=== PATIENT | female | born 1975 | race Caucasian/White ===

== ENCOUNTER → 2018-11-29 12:31 | Outpatient (CLI) | payer MEDICARE, MEDICAID, SELFPAY ==
--- NOTE | 2018-11-29 | DI.MRI.S_ITS ---
PROCEDURE: MR STROKE Pre- and post-contrast brain MRI, non-contrast brain MR angiogram, pre- and postcontrast neck MR angiogram INDICATIONS: Unspecified subjective visual disturbances TECHNIQUE: Brain: Noncontrast axial T1 spin echo, axial T2 fast spin echo, sagittal and axial FLAIR, coronal T2 fast spin echo, axial gradient echo, axial diffusion and ADC through the brain. After the administration of contrast, axial 3D VIBE of the cranial vasculature and brain. Brain MRA: Non-contrast 3-D time of flight MR angiogram, with multiple tpequma-ambltmwbl-dxpazfweul (MIP) reformats performed. Neck MRA: Axial and sagittal TruFISP through the neck. Coronal dynamic MR angiogram during administration of contrast in the arterial and venous phases, with 3-dimenstional oaopdef-bnmuhsdrp-nrmdofowne (MIP) reformats constructed from subtraction images. COMPARISON: None. FINDINGS: Image quality: Degraded by patient motion artifact. BRAIN: CSF spaces: Ventricles are normal in size and shape. Basal cisterns are patent. No extra-axial fluid collections. Brain: No intracranial bleeds or mass effects. There is mild, diffuse cerebral volume loss. There are minimal periventricular and subcortical white matter chronic microvascular ischemic changes. Baltazar-white matter interface is normal. Diffusion weighted images show no acute ischemic insults. Brainstem appears normal. Normal intravascular flow voids are present. No abnormal intracranial enhancement. Skull and face: Calvarial marrow signal is normal. Orbits appear normal. Sinuses: Sinuses and mastoids are clear. BRAIN MR ANGIOGRAM: Anterior circulation: Intracranial internal carotid arteries are normal in size and enhancement. The flow within the paired anterior cerebral arteries is normal and symmetric. The flow within the middle cerebral arteries is normal and symmetric. The anterior communicating artery is seen. No stenoses, occlusions, or aneurysms. Posterior circulation: The visualized portions of the vertebral arteries demonstrate normal caliber, and join to form a normal appearing basilar artery. The flow within the posterior cerebral arteries is normal and symmetric. No stenoses, occlusions, or aneurysms. NECK MR ANGIOGRAM: Carotids: Great vessels demonstrate a bovine variant anatomy as they arise from the aortic arch. The origins of the common carotid arteries appear patent. The calibers and courses of both common carotid arteries are normal. The bifurcation regions appear normal bilaterally. The internal carotid arteries demonstrate normal course and caliber. Posterior circulation: The origins of the vertebral arteries appear patent. More superior portions of both vertebral arteries demonstrate normal course and caliber, and join to form a normal appearing basilar artery. Miscellaneous: Subclavian arteries appear patent. Pre-contrast images through the neck show no soft tissue abnormalities. IMPRESSION: BRAIN MRI: 1. No acute intracranial disease process. 2. No areas of acute or chronic infarction. 3. No abnormal intracranial mass or suspicious postcontrast enhancement. 4. Mild, diffuse cerebral volume loss. 5. Minimal periventricular and subcortical white matter chronic microvascular ischemic changes. BRAIN MR ANGIOGRAM: Negative examination. NECK MR ANGIOGRAM: Negative examination. Dictated by: Ayanna Maradiaga MD, PhD on 11/29/2018 at 12:38 Approved by: Ayanna Maradiaga MD, PhD on 11/29/2018 at 12:44
[2018-11-29 15:46] LABS: BUN Creatinine Ratio 21.7 (6-22); Blood Urea Nitrogen 13 mg/dL (7-17); Estimated Glomerular Filt Rate > 60.0 mL/min (>60)
== END ==
PROVIDERS: PCP Naturopath; Visit Provider Ophthalmology
DX: H53.10 Unspecified subjective visual disturbances (principal)
CPT/HCPCS: 36415; 70548; 70553; 82565; 84520

== ENCOUNTER 2019-03-31 06:15 | Emergency (ER) | payer MEDICARE, MEDICAID, SELFPAY ==
[2019-03-31 06:20] VITALS: BP 139/85; PULSE 69; RESP 16; TEMP 36.4; O2SAT 97; BMI 22.7
--- NOTE | 2019-03-31 06:40 | ED.GENADULT ---
HPI - General Adult <DO Scott Pereyra Last Filed: 03/31/19 19:54> General Chief complaint: Urogenital-Female Stated complaint: poss kidney stones Time Seen by Provider: 03/31/19 06:19 Source: patient Mode of arrival: Family Vehicle Limitations: no limitations History of Present Illness HPI narrative: 44-year-old female. Denies any medical problems. Here for evaluation of right-sided flank pain. Patient states that her symptoms started about 1 week ago was worsened over that period of time and specialist over the past 24 hours. States that is on her right side. She thinks she has a kidney stone however is never had a kidney stone in the past. No rashes. Does seem to be positional. No change with urination. No change in her bowel habits. No vaginal bleeding. Has tried chiropractic because she stated that she thought that she threw her back out. She has no specific trauma that she knows of. Not nauseous. Stated in the past that she was told that she has had a ?gallbladder attack? she does state this pain in her right flank radiates around to the front. Related Data Previous Rx's Medication Instructions Recorded ibuprofen 800 mg PO Q8H PRN #30 tab 03/31/19 sulfamethoxazole-trimethoprim 1 tab PO BID 7 Days #14 tab 03/31/19 [Bactrim DS] Allergies Allergy/AdvReac Type Severity Reaction Status Date / Time amoxicillin [AMOXICILLIN] Allergy Unknown Unverified 06/03/17 12:09 Review of Systems <DO Scott Pereyra Last Filed: 03/31/19 19:54> Constitutional Constitutional: Denies fever(s) and Denies headache(s) ENT Ears, Nose, Mouth, and Throat: Denies headache(s) Cardiovascular Cardiovascular: Denies chest pain and Denies dyspnea Respiratory Respiratory: Denies dyspnea Gastrointestinal Gastrointestinal: Reports abdominal pain, Denies change in stool character, Denies nausea and Denies vomiting Genitourinary Genitourinary: Denies dysuria and Denies vaginal discharge Musculoskeletal Musculoskeletal: Reports back pain Integumentary/Breasts Skin/Breast: Denies lesions and Denies rash Neurologic Neurologic: Denies behavioral changes and Denies headache(s) Psychiatric Psychiatric: Denies behavioral changes Hematologic/Lymphatic Hematologic/Lymphatic: Denies easy bleeding and Denies easy bruising Patient History <DO Scott Pereyra Filed: 03/31/19 19:54> Medical History Patient denies medical problems (Acute) Social History Smoking Status: Never smoker Smoking Status: Never smoker alcohol intake frequency: 0-2 drinks per day Alcohol type: beer Substance Use Type: does not use Exam <DO Scott Pereyra Last Filed: 03/31/19 19:54> Initial Vital Signs Initial Vital Signs: Vital Signs Temperature 97.5 F L 03/31/19 06:20 Pulse Rate 69 03/31/19 06:20 Respiratory Rate 16 03/31/19 06:20 Blood Pressure 139/85 03/31/19 06:20 Pulse Oximetry 97 03/31/19 06:20 Const General: cooperative, comfortable and well developed Limitations: mental status not altered HENMT Head: normal to inspection and normocephalic Resp Effort & Inspection: normal respiratory effort Auscultation: clear to auscultation bilaterally Cardio Rate: regular rate Rhythm: regular rhythm GI Inspection: non-distended Palpation: soft, No firm and tender (Right upper quadrant) Back/Spine/Pelvis Back: CVA tenderness right Skin Lesions: no lesions Rashes: no rashes Neuro General: alert and awake Cognition: normal cognition Speech: speech normal Extrem General: normal to inspection and capillary refill normal Psych Appearance: grossly normal and well kempt <Tracy Miles DO - Last Filed: 03/31/19 11:31> Initial Vital Signs Initial Vital Signs: Vital Signs Temperature 97.5 F L 03/31/19 06:20 Pulse Rate 69 03/31/19 06:20 Respiratory Rate 16 03/31/19 06:20 Blood Pressure 139/85 03/31/19 06:20 Pulse Oximetry 97 03/31/19 06:20 Course <DO Scott Pereyra Last Filed: 03/31/19 19:54> Orders Ordered: Discontinued Medications Morphine Sulfate (Morphine) 4 mg IV NOW ONE Stop: 03/31/19 06:45 Last Admin: 03/31/19 06:48 Dose: 4 [facility] Vital Signs Vital signs: Vital Signs - 8 hr 03/31/19 06:20 03/31/19 07:52 Temperature 97.5 F L Pulse Rate 69 70 Respiratory Rate 16 Blood Pressure 139/85 Blood Pressure [Right Arm] 125/84 Pulse Oximetry 97 99 <Tracy Miles DO - Last Filed: 03/31/19 11:31> Orders Ordered: Discontinued Medications Morphine Sulfate (Morphine) 4 mg IV NOW ONE Stop: 03/31/19 06:45 Last Admin: 03/31/19 06:48 Dose: 4 mg [facility] Vital Signs Vital signs: Vital Signs - 8 hr 03/31/19 06:20 03/31/19 07:52 Temperature 97.5 F L Pulse Rate 69 70 Respiratory Rate 16 Blood Pressure 139/85 Blood Pressure [Right Arm] 125/84 Pulse Oximetry 97 99 Medical Decision Making <Joe Brady DO - Last Filed: 03/31/19 19:54> Lab Data Result diagrams: 03/31/19 06:40 03/31/19 06:40 Labs: Lab Results 03/31/19 03/31/19 03/31/19 Range/Units 06:40 06:40 07:00 WBC 10.5 (4.5-11.0) X10^3/uL RBC 4.17 (4.0-5.2) X10^6/uL Hgb 12.7 (12.0-16.0) g/dL Hct 37.3 (36-46) % MCV 89.5 (80-100) fL MCH 30.4 (26-34) PG MCHC 34.0 (30-36) % RDW 12.8 (11.6-14.8) % Plt Count 209 (150-400) X10^3/uL Neut % (Auto) 71.9 (50-75) % Lymph % (Auto) 16.0 L (25-40) % Redwood % (Auto) 8.5 (3-14) % Eos % (Auto) 2.7 (2-4) % Baso % (Auto) 0.9 (0-2) % Neut # (Auto) 7500 H (5834-9284) /uL Lymph # (Auto) 1700 (6557-3710) /uL Redwood # (Auto) 900 (0-900) /uL Eos # (Auto) 300 (0-450) /uL Baso # (Auto) 100 (0-100) /uL Sodium 136 L (137-145) mmol/L Potassium 4.0 (3.4-5.1) mmol/L Chloride 103 (98-107) mmol/L Carbon Dioxide 23 (22-32) mmol/L BUN 14 (7-17) mg/dL Creatinine 0.60 (0.52-1.04) mg/dL Estimated GFR > 60.0 (>60) mL/min BUN/Creatinine Ratio 23.3 H (6-22) Glucose 108 H (70-100) mg/dL Calcium 9.2 (8.4-10.2) mg/dL Total Bilirubin 0.4 (0.2-1.3) mg/dL AST 23 (14-36) IU/L ALT 16 (<35) IU/L Alkaline Phosphatase 63 (38-126) U/L Total Protein 7.5 (6.3-8.2) g/dL Albumin 4.2 (3.5-5.0) g/dL Globulin 3.3 (1.7-4.1) g/dL Albumin/Globulin Ratio 1.3 (1.0-2.8) Lipase 151 (23-300) U/L Ur Bilirubin Confirm Negative (Negative) Urine RBC None seen (0-5/HPF) Urine WBC 0-1/hpf (0-5/HPF) Ur Squamous Epith Cells 1-5 /hpf (0-5/HPF) Urine Bacteria Few (2-10) H (None) Ur Culture Indicated? Specimen cultured Point of Care Testing Test Results Negative Urine Dip Bedside Urine Glucose Negative Bedside Urine Bilirubin + 1 Bedside Urine Ketone - Negative Urine Specific [place] 1.020 Bedside Urine Occult Blood - Negative Bedside Urine pH 6.0 Bedside Urine Protein +/- 15 Bedside Urine Urobilinogen - Negative Bedside Urine Nitrite - Negative Bedside Urine Leukocytes + 70 Esterase Point of care testing: Point of Care Testing Test Results Negative Urine Dip Bedside Urine Glucose Negative Bedside Urine Bilirubin + 1 Bedside Urine Ketone - Negative Urine Specific [place] 1.020 Bedside Urine Occult Blood - Negative Bedside Urine pH 6.0 Bedside Urine Protein +/- 15 Bedside Urine Urobilinogen - Negative Bedside Urine Nitrite - Negative Bedside Urine Leukocytes + 70 Esterase MDM Narrative Medical decision making narrative: Patient does have reproducible symptoms on her right paraspinal region on her back/CVA. Does radiate around to the front. She does have right upper quadrant tenderness. Although patient denied any prior medical problems she did state that in the past she has been told that she had a ?gallbladder issue ?she was told that she needed her gallbladder removed. Labs drawn, and right upper quadrant ultrasound ordered. I do have low suspicion for kidney stones given her presentation. Care turned over to Dr. Miles at change of shift to follow up. <Tracy Miles, DO - Last Filed: 03/31/19 11:31> Lab Data Lab results reviewed: Yes I reviewed the patient's lab results. Labs: Lab Results 03/31/19 03/31/19 03/31/19 Range/Units 06:40 06:40 07:00 WBC 10.5 (4.5-11.0) X10^3/uL RBC 4.17 (4.0-5.2) X10^6/uL Hgb 12.7 (12.0-16.0) g/dL Hct 37.3 (36-46) % MCV 89.5 (80-100) fL MCH 30.4 (26-34) PG MCHC 34.0 (30-36) % RDW 12.8 (11.6-14.8) % Plt Count 209 (150-400) X10^3/uL Neut % (Auto) 71.9 (50-75) % Lymph % (Auto) 16.0 L (25-40) % Redwood % (Auto) 8.5 (3-14) % Eos % (Auto) 2.7 (2-4) % Baso % (Auto) 0.9 (0-2) % Neut # (Auto) 7500 H (3694-5939) /uL Lymph # (Auto) 1700 (0589-6045) /uL Redwood # (Auto) 900 (0-900) /uL Eos # (Auto) 300 (0-450) /uL Baso # (Auto) 100 (0-100) /uL Sodium 136 L (137-145) mmol/L Potassium 4.0 (3.4-5.1) mmol/L Chloride 103 (98-107) mmol/L Carbon Dioxide 23 (22-32) mmol/L BUN 14 (7-17) mg/dL Creatinine 0.60 (0.52-1.04) mg/dL Estimated GFR > 60.0 (>60) mL/min BUN/Creatinine Ratio 23.3 H (6-22) Glucose 108 H (70-100) mg/dL Calcium 9.2 (8.4-10.2) mg/dL Total Bilirubin 0.4 (0.2-1.3) mg/dL AST 23 (14-36) IU/L ALT 16 (<35) IU/L Alkaline Phosphatase 63 (38-126) U/L Total Protein 7.5 (6.3-8.2) g/dL Albumin 4.2 (3.5-5.0) g/dL Globulin 3.3 (1.7-4.1) g/dL Albumin/Globulin Ratio 1.3 (1.0-2.8) Lipase 151 (23-300) U/L Ur Bilirubin Confirm Negative (Negative) Urine RBC None seen (0-5/HPF) Urine WBC 0-1/hpf (0-5/HPF) Ur Squamous Epith Cells 1-5 /hpf (0-5/HPF) Urine Bacteria Few (2-10) H (None) Ur Culture Indicated? Specimen cultured Point of Care Testing Test Results Negative Urine Dip Bedside Urine Glucose Negative Bedside Urine Bilirubin + 1 Bedside Urine Ketone - Negative Urine Specific [place] 1.020 Bedside Urine Occult Blood - Negative Bedside Urine pH 6.0 Bedside Urine Protein +/- 15 Bedside Urine Urobilinogen - Negative Bedside Urine Nitrite - Negative Bedside Urine Leukocytes + 70 Esterase Point of care testing: Point of Care Testing Test Results Negative Urine Dip Bedside Urine Glucose Negative Bedside Urine Bilirubin + 1 Bedside Urine Ketone - Negative Urine Specific [place] 1.020 Bedside Urine Occult Blood - Negative Bedside Urine pH 6.0 Bedside Urine Protein +/- 15 Bedside Urine Urobilinogen - Negative Bedside Urine Nitrite - Negative Bedside Urine Leukocytes + 70 Esterase Imaging Data US - abdomen: Radiologist's Impression: PROCEDURE: US ABDOMEN LIMITED INDICATIONS: RIGHT UPPER QUADRANT PAIN TECHNIQUE: Real-time focused scanning was performed of the abdomen, with image documentation. COMPARISON: None. FINDINGS: Liver is sonographically normal. Gallbladder is sonographically normal. No gallstones. No gallbladder wall thickening. No pericholecystic fluid. No sonographic Serrano sign. Biliary tree is nondilated. Common bile duct measures 3.9 mm. Pancreas is sonographically normal. IMPRESSION: No sonographic evidence of cholelithiasis or cholecystitis. If there is continued clinical concern for cholecystitis, nuclear medicine HIDA scan should be considered for further evaluation. Dictated by: Ayanna Maradiaga MD, PhD on 03/31/2019 at 7:53 CT scan - abdomen/pelvis: Radiologist's Impression: PROCEDURE: CT KIDNEY URETER BLADDER (KUB) INDICATIONS: right flank pain TECHNIQUE: Noncontrast 5 mm thick sections acquired from the diaphragms to the symphysis. 5 mm thick coronal and sagittal reformats were then performed. For radiation dose reduction, the following was used: automated exposure control, adjustment of mA and/or kV according to patient size. COMPARISON: None. FINDINGS: Image quality: Excellent. Lung bases: Lung bases are clear. No acute consolidation. Sub-3 mm incidental nodules in both lung bases for example image 2 series 3 on the left and image 4/3 on the right, statistically granulomatous sequela although technically indeterminate Heart size is normal. Urinary system: Both kidneys are normal in size. No kidney stones. No hydronephrosis or perinephric fat stranding. Both ureters appear non-dilated throughout their expected courses. Bladder wall thickness is normal; no calcified bladder stones. Other solid organs: Liver is normal in size. Gallbladder negative. Pancreas is normal in contours. Spleen is normal in size. No adrenal nodules. Peritoneum and bowel: Unenhanced bowel loops demonstrate normal wall thickness and caliber. No free fluid or air. Appendix is not clearly identified however no suspicious pericecal inflammatory changes are seen. Nodes and vessels: No retroperitoneal or mesenteric adenopathy by size criteria. Aorta and inferior vena cava are normal in caliber. Abdominal wall: No ventral hernias. Pelvis: No free pelvic fluid. No inguinal hernias or adenopathy. Bones: No suspicious bony lesions. No vertebral body compression fractures. IMPRESSION: No urolithiasis. No evidence of urinary obstruction Appendix is not clearly identified however no suspicious pericecal inflammatory changes are seen. No acute process seen. Additional chronic and incidental findings as above. Dictated by: Luis Cruz M.D. on 03/31/2019 at 8:22 MDM Narrative Medical decision making narrative: Patient signed out to me by Dr. Brady of seen and evaluated patient myself. Her pain is much better. Seems to be in the right upper flank. She said initially it did radiate down into her lower abdomen off and on she has been nauseous. Ultrasound is negative blood work is overall reassuring. Does have leukocytes in her urine but denies any urinary frequency, urgency or dysuria. She has no leukocytosis and is afebrile. Will get CT to rule out nephrolithiasis. Possible musculoskeletal strain. She does have muscle relaxers at home which she says aren't working. CT is negative for any kidney stone. With right-sided flank pain and leukocytes in urine along with bacteria will treat for pyelo however she does not appear septic. Still possibility this is musculoskeletal. Discharge Plan Departure Patient Disposition: Home Clinical Impression: Urinary tract infection Qualifiers: Urinary tract infection type: acute pyelonephritis Qualified Code(s): N10 - Acute pyelonephritis Discharge Date/Time: 03/31/19 08:35 Instructions: DI for Kidney Infection, DI for Muscle Spasm Activity Restrictions/Additional Instructions: *You have been diagnosed with kidney infection *What to do: At this time blood work ultrasound and CT are overall reassuring. It does appear that you do have some bacteria in her urine which can cause kidney infection. This may be the cause of your pain. *Continue to take medications as directed Bactrim 1 tablet twice a day for 7 days Ibuprofen 800 mg every 8 hours if needed for [id number] pain Tylenol 650 mg every 4-6 hours if needed for [id number] pain *Follow up with your primary care provider in 2-3 days *Return to ER if you should have increasing pain inability keep antibiotics down worsening confusion fevers or any new, worsening or concerning symptoms Prescriptions: New sulfamethoxazole-trimethoprim [Bactrim DS] 800-160 mg tablet 1 tab PO BID 7 Days Qty: 14 RF: 0 ibuprofen 800 mg tablet 800 mg PO Q8H PRN (Reason: pain) Qty: 30 RF: 0 Referrals: Juan Blue ND [Primary Care Provider] -
[2019-03-31] MEDS: MORPHINE 4 MG/ML INJ IV (06:48)
[2019-03-31 06:50] LABS: Add Manual Diff / Slide Review NO; Basophils Absolute Auto 100 /uL (0-100); Basophils Percent Auto 0.9 % (0-2); Eosinophils Absolute Auto 300 /uL (0-450); Eosinophils Percent Auto 2.7 % (2-4); Hematocrit 37.3 % (36-46); Hemoglobin 12.7 g/dL (12.0-16.0); Lymphocytes Absolute Auto 1700 /uL (1100-4500); Mean Corpuscular Hemoglobin 30.4 PG (26-34); Mean Corpuscular Volume 89.5 fL (80-100); Monocytes Absolute Auto 900 /uL (0-900); Monocytes Percent Auto 8.5 % (3-14); Neutrophils Absolute Auto 7500 /uL (1500-7000); Neutrophils Percent Auto 71.9 % (50-75); Platelet Count 209 X10^3/uL (150-400); Red Blood Cell Count 4.17 X10^6/uL (4.0-5.2); Red Cell Distribution Width 12.8 % (11.6-14.8); White Blood Cell Count 10.5 X10^3/uL (4.5-11.0)
[2019-03-31 07:00] LABS: Alanine Aminotransferase 16 IU/L (<35); Albumin 4.2 g/dL (3.5-5.0); Albumin Globulin Ratio 1.3 (1.0-2.8); Alkaline Phosphatase 63 U/L (38-126); Aspartate Aminotransferase 23 IU/L (14-36); BUN Creatinine Ratio 23.3 (6-22); Bilirubin Total 0.4 mg/dL (0.2-1.3); Blood Urea Nitrogen 14 mg/dL (7-17); Calcium 9.2 mg/dL (8.4-10.2); Carbon Dioxide 23 mmol/L (22-32); Chloride 103 mmol/L (98-107); Estimated Glomerular Filt Rate > 60.0 mL/min (>60); Globulin 3.3 g/dL (1.7-4.1); Glucose 108 mg/dL (70-100); HEMOLYSIS < 15 (0-50); Lipase 151 U/L (23-300); Sodium 136 mmol/L (137-145); Total Protein 7.5 g/dL (6.3-8.2)
[2019-03-31 07:24] LABS: RBC Urine None Seen (0-5/HPF)
[2019-03-31 07:37] LABS: Ictotest Urine Negative (Negative); WBC Urine 0-1/HPF (0-5/HPF)
[2019-03-31 07:38] LABS: Bacteria Urine Few (2-10); Culture Indicated Urine Specimen Cultured; Squamous Epithelial Cell Urine 1-5 /HPF (0-5/HPF)
--- NOTE | 2019-03-31 07:43 | DI.CT.S_ITS ---
PROCEDURE: CT KIDNEY URETER BLADDER (KUB) INDICATIONS: right flank pain TECHNIQUE: Noncontrast 5 mm thick sections acquired from the diaphragms to the symphysis. 5 mm thick coronal and sagittal reformats were then performed. For radiation dose reduction, the following was used: automated exposure control, adjustment of mA and/or kV according to patient size. COMPARISON: None. FINDINGS: Image quality: Excellent. Lung bases: Lung bases are clear. No acute consolidation. Sub-3 mm incidental nodules in both lung bases for example image 2 series 3 on the left and image 4/3 on the right, statistically granulomatous sequela although technically indeterminate Heart size is normal. Urinary system: Both kidneys are normal in size. No kidney stones. No hydronephrosis or perinephric fat stranding. Both ureters appear non-dilated throughout their expected courses. Bladder wall thickness is normal; no calcified bladder stones. Other solid organs: Liver is normal in size. Gallbladder negative. Pancreas is normal in contours. Spleen is normal in size. No adrenal nodules. Peritoneum and bowel: Unenhanced bowel loops demonstrate normal wall thickness and caliber. No free fluid or air. Appendix is not clearly identified however no suspicious pericecal inflammatory changes are seen. Nodes and vessels: No retroperitoneal or mesenteric adenopathy by size criteria. Aorta and inferior vena cava are normal in caliber. Abdominal wall: No ventral hernias. Pelvis: No free pelvic fluid. No inguinal hernias or adenopathy. Bones: No suspicious bony lesions. No vertebral body compression fractures. IMPRESSION: No urolithiasis. No evidence of urinary obstruction Appendix is not clearly identified however no suspicious pericecal inflammatory changes are seen. No acute process seen. Additional chronic and incidental findings as above. Dictated by: Luis Cruz M.D. on 03/31/2019 at 8:22 Approved by: Luis Cruz M.D. on 03/31/2019 at 8:26
[2019-03-31 07:52] VITALS: BP 125/84; PULSE 70; O2SAT 99
== END 2019-03-31 08:35 | disposition home or self-care (01) ==
PROVIDERS: Emergency Medicine; Emergency Provider Emergency Medicine; PCP Naturopath
DX: N10 Acute pyelonephritis (principal); R10.11 Right upper quadrant pain
CPT/HCPCS: 36415; 74176; 76705; 80053; 81003; 81015; 81025; 83690; 85025; 87086; 96374; 99284; J2270

== ENCOUNTER 2019-06-15 15:45 | Emergency (ER) | payer MEDICARE, MEDICAID, SELFPAY ==
[2019-06-15 15:50] VITALS: BP 155/78; PULSE 70; RESP 14; TEMP 36.8; O2SAT 98; BMI 22.7
--- NOTE | 2019-06-15 16:42 | ED.NECK ---
HPI - Neck Pain/Injury General Chief Complaint: Dental/Oral Stated Complaint: Left Sided Jaw Swelling, Rash, Numbness Time Seen by Provider: 06/15/19 16:16 Source: patient Mode of arrival: Ambulatory Limitations: no limitations History of Present Illness HPI Narrative: Patient has been seen by primary care physician at [facility] in standard [place] multiple times in the past 2 months. In the 1st month in April patient was seen multiple times for upper respiratory infection. Had Zithromax and Medrol Dosepak as well as inhaler. Has improved with the symptoms. In last week she had to see the clinic again for left jawline swelling and left upper neck swelling. Was placed on cefuroxime. However developed a rash on the face and was discontinued. Over this past weekend patient was seen again and discontinue if cefuroxime but was started on Zithromax for sinus infection and Macrobid for UTI. She describes intermittent rash on both sides of the face with intermittent tingling of both sides of the face. Swelling has improved. Patient did have outpatient ultrasound of the neck today by her clinic. She provided the transcribed results. No acute findings. She did have laboratory studies done. Related Data Previous Rx's Medication Instructions Recorded ibuprofen 800 mg PO Q8H PRN #30 tab 03/31/19 Allergies Allergy/AdvReac Type Severity Reaction Status Date / Time amoxicillin [AMOXICILLIN] Allergy Unknown Verified 06/15/19 15:55 cefuroxime Allergy Verified 06/15/19 15:56 Penicillins Allergy Verified 06/15/19 15:56 Review of Systems Review of Systems Narrative: GENERAL: Denies chills, fatigue, malaise, fever, sweats. HEENT: Denies sinus pain, ear pain, sore throat, difficulty swallowing, dizziness. Complains of neck pain. Left jaw swelling RESPIRATORY: Denies dyspnea, cough, wheezing, hemoptysis, sputum. CARDIOVASCULAR: Denies chest pain, palpitations, orthopnea, edema, GASTROINTESTINAL: Denies nausea, vomiting, abdominal pain, diarrhea, constipation, melena. : Denies dysuria, frequency, incontinence, hematuria, urinary retention. MUSCULOSKELETAL: denies weakness, joint pain, or bony pain SKIN: Bilateral facial rash/pruritus NEUROLOGIC: Denies weakness, headache, numbness, change in speech, confusion, seizures, incoordination. PSYCHIATRIC: No concerning psychosocial issues. 12 point review of systems is negative except for those stated above Patient History Medical History Patient denies medical problems (Acute) Social History Smoking Status: Never smoker Smoking Status: Never smoker alcohol intake frequency: 0-2 drinks per day Alcohol type: beer Substance Use Type: does not use Exam Narrative Exam Narrative: GENERAL: [] year old patient appears stated age. Well-nourished, well-developed patient, in no distress, not toxic HEAD: Atraumatic. Normocephalic. EYES: Pupils equal round and reactive. Extraocular motions intact. No scleral icterus. No injection or drainage. ENT: Nose without bleeding, purulent drainage. Throat without erythema, tonsillar hypertrophy or exudate. Airway patent. No dental tenderness or palpable abscess. No left jaw swelling. Nontender done large parotid and submandibular glands NECK: Trachea midline. Non tender none no palpable lymphadenopathy. No rash on face or neck. No meningeal signs. No thyromegaly CARDIOVASCULAR: Regular rate and rhythm without murmurs, gallops, or rubs. RESPIRATORY: Clear to auscultation. Breath sounds equal bilaterally. No wheezes, rales, or rhonchi. GASTROINTESTINAL: Abdomen soft, non-tender, nondistended. EXTREMITIES: No edema or joint tenderness. BACK: Nontender without deformity or crepitance. No flank tenderness. NEURO: AOx3. SKIN: No rash or erythema of visible areas Initial Vital Signs Initial Vital Signs: Vital Signs Temperature 98.3 F 06/15/19 15:50 Pulse Rate 70 06/15/19 15:50 Respiratory Rate 14 06/15/19 15:50 Blood Pressure 155/78 H 06/15/19 15:50 Pulse Oximetry 98 06/15/19 15:50 Course Orders Ordered: ED Orders 06/15/19 17:50 Comprehensive Metabolic Panel Stat Vital Signs Vital signs: Vital Signs - 8 hr 06/15/19 15:50 Temperature 98.3 F Pulse Rate 70 Respiratory Rate 14 Blood Pressure 155/78 H Pulse Oximetry 98 MDM - Neck Pain/Injury Differential Diagnosis Differential diagnosis: Likely cervical radiculopathy and other (Hypothyroidism. Parathyroid dysfunction. Hypocalcemia) Medical Records Attestation: I reviewed the patient's medical records. Medical records narrative: Patient had laboratory studies faxed to us from her [facility]. Free T4 0.7. TSH 0.01, decreased since November 18, 2017 at that time 0.39 CBC June 11, 2019 white cell count 9.0 hemoglobin 13.9 platelets 203, Lab Data Result diagrams: 06/15/19 17:50 MDM Narrative Medical decision making narrative: Patient appropriate for discharge home. No signs of thyroid storm. No altered mental status. No fever chills. No edema. On examination no pedal edema. No facial edema. Discharge Plan Departure Patient Disposition: Home Activity Restrictions/Additional Instructions: See her family doctor within next week for recheck and review your ultrasound and laboratory studies from today. Return if worse. Prescriptions: No Action ibuprofen 800 mg tablet 800 mg PO Q8H PRN (Reason: pain) Qty: 30 RF: 0 Referrals: Juan Blue ND [Primary Care Provider] -
--- NOTE | 2019-06-15 17:53 | PC.NURSE ---
pt concerned for Feeling of numbness and redness on face and neck that is coming and going.
[2019-06-15 18:12] LABS: Alanine Aminotransferase 18 IU/L (<35); Albumin 4.2 g/dL (3.5-5.0); Albumin Globulin Ratio 1.3 (1.0-2.8); Alkaline Phosphatase 57 U/L (38-126); Aspartate Aminotransferase 26 IU/L (14-36); Bilirubin Total 0.3 mg/dL (0.2-1.3); Blood Urea Nitrogen 13 mg/dL (7-17); Calcium 9.2 mg/dL (8.4-10.2); Carbon Dioxide 20 mmol/L (22-32); Chloride 107 mmol/L (98-107); Estimated Glomerular Filt Rate > 60.0 mL/min (>60); Globulin 3.3 g/dL (1.7-4.1); Glucose 94 mg/dL (70-100); HEMOLYSIS < 15 (0-50); Potassium 3.8 mmol/L (3.4-5.1); Sodium 137 mmol/L (137-145); Total Protein 7.5 g/dL (6.3-8.2)
[2019-06-15 18:54] VITALS: BP 132/93; PULSE 79; RESP 18; O2SAT 97
== END 2019-06-15 18:55 | disposition home or self-care (01) ==
PROVIDERS: Emergency Medicine; Emergency Provider Emergency Medicine; PCP Naturopath
DX: R20.2 Paresthesia of skin (principal); R22.1 Localized swelling, mass and lump, neck
CPT/HCPCS: 36415; 80053; 99283

== ENCOUNTER → 2020-10-01 14:43 | Outpatient (CLI) | payer MEDICARE, MEDICAID, SELFPAY ==
[2020-10-01 15:23] LABS: Add Manual Diff / Slide Review NO; Basophils Absolute Auto 0 /uL (0-100); Basophils Percent Auto 0.5 % (0-2); Eosinophils Absolute Auto 200 /uL (0-450); Eosinophils Percent Auto 2.2 % (2-4); Hematocrit 37.8 % (36-46); Hemoglobin 12.6 g/dL (12.0-16.0); Lymphocytes Absolute Auto 2000 /uL (1100-4500); Lymphocytes Percent Auto 23.1 % (25-40); Mean Corpuscular HGB Conc 33.4 % (30-36); Mean Corpuscular Hemoglobin 30.8 PG (26-34); Mean Corpuscular Volume 92.2 fL (80-100); Monocytes Absolute Auto 400 /uL (0-900); Monocytes Percent Auto 5.2 % (3-14); Neutrophils Absolute Auto 5900 /uL (1500-7000); Platelet Count 238 X10^3/uL (150-400); Red Cell Distribution Width 13.2 % (11.6-14.8); White Blood Cell Count 8.5 X10^3/uL (4.5-11.0)
[2020-10-01 15:48] LABS: Alanine Aminotransferase 20 IU/L (<35); Albumin 4.3 g/dL (3.5-5.0); Albumin Globulin Ratio 1.3 (1.0-2.8); Alkaline Phosphatase 76 U/L (38-126); Aspartate Aminotransferase 30 IU/L (14-36); BUN Creatinine Ratio 20.3 (6-22); Bilirubin Total 0.5 mg/dL (0.2-1.3); Blood Urea Nitrogen 14 mg/dL (7-17); Calcium 9.2 mg/dL (8.4-10.2); Carbon Dioxide 21 mmol/L (22-32); Chloride 105 mmol/L (98-107); Cholesterol 180 mg/dL (140-199); Estimated Glomerular Filt Rate > 60.0 mL/min (>60); Globulin 3.3 g/dL (1.7-4.1); Glucose 92 mg/dL (70-100); HEMOLYSIS < 15 (0-50); Sodium 137 mmol/L (137-145); Total Protein 7.6 g/dL (6.3-8.2); Triglycerides 164 mg/dL (35-150)
[2020-10-01 15:56] LABS: HDL Cholesterol 129 mg/dL (40-60); LDL Cholesterol Calculated 18 mg/dL (<100)
[2020-10-01 16:22] LABS: TSH w/ Reflex to FT4 0.12 uIU/mL (0.47-4.68)
[2020-10-01 16:38] LABS: Vitamin B12 > 1000 pg/mL (239-931)
[2020-10-01 17:33] LABS: Free T4, Direct Thyroxine 1.26 ng/dL (0.78-2.19)
== END ==
PROVIDERS: PCP Family Medicine; Referring Provider Family Medicine; Visit Provider Family Medicine
DX: E06.3 Autoimmune thyroiditis (principal); K58.9 Irritable bowel syndrome, unspecified; R19.7 Diarrhea, unspecified
CPT/HCPCS: 36415; 80053; 80061; 82607; 84439; 84443; 85025

== ENCOUNTER → 2021-01-24 16:08 | Outpatient (CLI) | payer MEDICARE, MEDICAID, SELFPAY ==
[2021-01-24 18:40] LABS: Alanine Aminotransferase 18 IU/L (<35); Albumin 4.4 g/dL (3.5-5.0); Albumin Globulin Ratio 1.5 (1.0-2.8); Alkaline Phosphatase 63 U/L (38-126); Aspartate Aminotransferase 24 IU/L (14-36); BUN Creatinine Ratio 18.8 (6-22); Bilirubin Total 0.5 mg/dL (0.2-1.3); Blood Urea Nitrogen 15 mg/dL (7-17); Calcium 9.6 mg/dL (8.4-10.2); Carbon Dioxide 26 mmol/L (22-32); Chloride 101 mmol/L (98-107); Estimated Glomerular Filt Rate > 60.0 mL/min (>60); Glucose 85 mg/dL (70-100); HEMOLYSIS < 15 (0-50); Potassium 4.3 mmol/L (3.4-5.1); Sodium 134 mmol/L (137-145); Total Protein 7.4 g/dL (6.3-8.2)
== END ==
PROVIDERS: PCP Family Medicine; Referring Provider Family Medicine; Visit Provider Family Medicine
DX: N39.0 Urinary tract infection, site not specified (principal); R63.1 Polydipsia; R35.89 Other polyuria
CPT/HCPCS: 36415; 80053

== ENCOUNTER → 2023-08-23 13:47 | Outpatient (CLI) | payer MEDICARE, MEDICAID, SELFPAY ==
--- NOTE | 2023-08-23 13:51 | DI.MRI.S_ITS ---
PROCEDURE: MR PELVIS WO CON INDICATIONS: left sided pelvic pain s/p hysterectomy TECHNIQUE: Coronal HASTE, sagittal breath-hold T2 FSE; axial T1 FSE with and without fat saturation through the pelvis. Optional long- and short-axis uterine nonbreath-hold T2 FSE through the uterus. Sagittal or axial dynamic VIBE during administration of contrast. Post-contrast axial or coronal VIBE/2-D FLASH with fat saturation from the iliac crests to the symphysis. COMPARISON: [facility], CT, CT KIDNEY URETER BLADDER (KUB), 03/31/2019, 8:07. FINDINGS: Image quality: Fair. Uterus: Absent. Vaginal cuff is unremarkable. Adnexa: Ovaries are not well seen. Left adnexal cyst measuring 3.3 x 3.2 x 2.5 cm, (06/09). This cyst demonstrates homogeneous T2 hyperintense signal common no intrinsic T1 hyperintense signal. No intrinsic T1 hyperintense cysts. Urinary system: Bladder wall is normal in thickness. Distal ureters are non distended. Urethra appears normal in morphology. Nodes and vessels: No pelvic or inguinal adenopathy by size criteria. Iliac vessels are normal in size. Bowel and peritoneum: No pathologic free pelvic fluid. Inferior colon and small bowel loops are normal in caliber. The appendix is not dilated. Soft tissues: No inguinal hernias. No findings of pelvic floor incompetence in the absence of provocation. Bones: Marrow demonstrates normal overall signal. IMPRESSION: 1. No free fluid. No adenopathy. 2. Left adnexal T2 hyperintense cyst measuring 3.3 cm. Overall simple appearing. This could be further evaluated with pelvic ultrasound. 3. Normal appendix. Dictated by: Abhishek Self M.D. on 08/24/2023 at 9:08 Approved by: Abhishek Self M.D. on 08/24/2023 at 9:56
--- NOTE | 2023-08-23 13:51 | DI.RAD.S_ITS ---
PROCEDURE: XR LUMBAR SPINE MIN 4V INDICATIONS: Pelvioc and left SI joint pain s/p hysterectomy 01/09/2022 TECHNIQUE: 5 views of the lumbar spine were acquired, including bilateral oblique views. COMPARISON: None. FINDINGS: Bones: 5 nonrib-bearing vertebrae are present. There is normal bony alignment. No vertebral body compression fractures. No suspicious bony lesions. Facet arthropathy of the lower lumbar spine. Soft tissues: Overlying bowel gas pattern is normal. No suspicious soft tissue calcifications. Oblique images: No pars defects. IMPRESSION: Facet arthropathy of the lower lumbar spine. No acute osseous abnormalities. Dictated by: Simeon Thakkar M.D. on 08/23/2023 at 13:55 Approved by: Simeon Thakkar M.D. on 08/23/2023 at 13:56
== END ==
LOC: MRI 13:50
PROVIDERS: PCP Naturopath; Referring Provider Physical Medicine & Rehabilitation; Visit Provider Physical Medicine & Rehabilitation
DX: M47.816 Spondylosis without myelopathy or radiculopathy, lumbar region (principal); N94.89 Other specified conditions associated with female genital organs and menstrual cycle; M54.9 Dorsalgia, unspecified; R10.2 Pelvic and perineal pain; M53.3 Sacrococcygeal disorders, not elsewhere classified; Z90.710 Acquired absence of both cervix and uterus
CPT/HCPCS: 72110; 72195

== ENCOUNTER 2024-02-16 13:43 | Emergency (ER) | payer MEDICARE, MEDICAID, SELFPAY ==
[2024-02-16 13:58] VITALS: BP 164/113; PULSE 71; RESP 16; TEMP 36.4; O2SAT 100; BMI 20.3
--- NOTE | 2024-02-16 18:02 | ED_ITS ---
HPI - Headache General Chief Complaint: Headache Stated Complaint: sent by Dr for sinus infection Time Seen by Provider: 02/16/24 17:56 Mode of arrival: Ambulatory History of Present Illness HPI Narrative: 49-year-old female with history of TBI presents for abnormal sensation in her head x1 week. Patient states ?my brain isn't working right? and says she feels a sweeping sensation inside of her head. She has been treated for sinus infections by her doctor. Patient called the office for advice and she was told to come to the ED for evaluation. Denies headache, vision changes, vomiting, other complaints. Related Data Home Medications Medication Instructions Recorded Confirmed albuterol sulfate 90 mcg/actuation 2 puff inhalation Q6H PRN 01/06/20 10/07/23 aerosol inhaler (Ventolin HFA) levothyroxine 137 mcg tablet 137 mcg PO DAILY 08/19/23 10/07/23 (Synthroid) cephalexin HCl 500 mg tablet 500 mg PO BID 10/07/23 10/07/23 Previous Rx's Medication Instructions Recorded meloxicam 15 mg tablet 15 mg PO DAILY #30 tabs 10/07/23 Allergies Allergy/AdvReac Type Severity Reaction Status Date / Time amoxicillin [AMOXICILLIN] Allergy Unknown Verified 10/07/23 15:46 azithromycin [From Zithromax] Allergy Unknown Verified 10/07/23 15:46 cefuroxime Allergy Verified 10/07/23 15:46 Penicillins Allergy Verified 10/07/23 15:46 Sulfa (Sulfonamide AdvReac Unknown Verified 10/07/23 15:46 Antibiotics) Patient History Medical History Sacral back pain Facet arthropathy, lumbar Lumbar radiculopathy Polyuria Polydipsia Fracture Vision disorder Vertigo Recurrent sinusitis Painful menstrual periods Heavy menstrual period Isis's thyroiditis Acute maxillary sinusitis Migraine with aura Orbital fracture COVID-19 (~04/2019) Traumatic brain injury Surgical History S/P hysterectomy Anesthesia History of facial surgery Family History Mother Allergies Brain tumor (benign) Father Hypertension Chronic kidney disease Grandfather History of heart disease Grandmother Cancer Grandfather History of heart disease Grandmother Stroke Social History Smoking Status: Never smoker Smoking Status: Never smoker alcohol intake frequency: 0-2 drinks per day Alcohol type: beer Exam Initial Vital Signs Initial Vital Signs: Vital Signs Temperature 97.6 F 02/16/24 13:58 Pulse Rate 71 02/16/24 13:58 Respiratory Rate 16 02/16/24 13:58 Blood Pressure 164/113 H 02/16/24 13:58 Pulse Oximetry 100 02/16/24 13:58 Oxygen Delivery Method Room Air 02/16/24 13:58 Const: Awake, alert, no acute distress, nontoxic appearing Cardiac: regular rate, regular rhythm RESP: unlabored, clear bilaterally, no wheezing Skin: Warm, Dry, intact, no rashes Neuro: AO x3, CN II-XII grossly intact, moves all extremities Course Orders Ordered: ED Orders 02/16/24 18:55 CT head/brain wo con Stat EKG-12 Lead Stat Vital Signs Vital signs: Vital Signs - 8 hr 02/16/24 13:58 02/16/24 17:35 Temperature 97.6 F Pulse Rate 71 Respiratory Rate 16 Blood Pressure 164/113 H Pulse Oximetry 100 Oxygen Delivery Method Room Air Room Air MDM - Headache Imaging Data CT scan - head: Radiologist's Impression: PROCEDURE: CT HEAD/BRAIN WO CON INDICATIONS: HEADACHE TECHNIQUE: Noncontrast 4.5 mm thick angled axial sections acquired from the foramen magnum to the vertex, with coronal and sagittal reformats. For radiation dose reduction, the following was used: automated exposure control, adjustment of mA and/or kV according to patient size. COMPARISON: None. FINDINGS: Image quality: Diagnostic. CSF spaces: Basal cisterns are patent. No extra-axial fluid collections. Ventricles are normal in size and shape. Brain: No midline shift. No intracranial masses or hemorrhage. Baltazar-white matter interface is normal. Skull and face: Calvarium and visualized facial bones are intact, without suspicious lesions. Sinuses: Mucosal thickening is seen in the anterior ethmoid air cells. Visualized sinuses and mastoids are otherwise clear. IMPRESSION: No acute intracranial pathology. Approved by: Frantz Carpenter M.D. on 02/16/2024 at 19:13 [facility] Narrative Medical decision making narrative: Well-appearing patient with 1 week of symptoms. Neurologically intact, no deficits. Patient has an emotional support pug with her that she is able to care for. No obvious physical exam abnormalities. CT brain negative for acute findings. Patient states she is worried about stroke, however there is no physical or imaging evidence of CVA and description of symptoms not consistent with stroke either. Patient advised to follow up with her PCP. Discharge Plan Departure Patient Disposition: Home Clinical Impression: Well adult exam, Irritable bowel syndrome Instructions: DI for Migraine Activity Restrictions/Additional Instructions: Your head CT was normal today. I do not know the cause of your symptoms but it does not appear as though you had a stroke. Follow up with your primary care doctor if you keep having these symptoms. Prescriptions: No Action albuterol sulfate [Ventolin HFA] 90 mcg/actuation HFA aerosol inhaler 2 puff INHALATION Q6H PRN levothyroxine [Synthroid] 137 mcg tablet 137 mcg PO DAILY cephalexin HCl 500 mg tablet 500 mg PO BID meloxicam 15 mg tablet 15 mg PO DAILY Qty: 30 2RF Referrals: Mauricio Blue ND [Primary Care Provider] - Stand Alone Forms: Patient Portal/API/Survey
--- NOTE | 2024-02-16 18:55 | DI.CT.S_ITS ---
PROCEDURE: CT HEAD/BRAIN WO CON INDICATIONS: HEADACHE TECHNIQUE: Noncontrast 4.5 mm thick angled axial sections acquired from the foramen magnum to the vertex, with coronal and sagittal reformats. For radiation dose reduction, the following was used: automated exposure control, adjustment of mA and/or kV according to patient size. COMPARISON: None. FINDINGS: Image quality: Diagnostic. CSF spaces: Basal cisterns are patent. No extra-axial fluid collections. Ventricles are normal in size and shape. Brain: No midline shift. No intracranial masses or hemorrhage. Baltazar-white matter interface is normal. Skull and face: Calvarium and visualized facial bones are intact, without suspicious lesions. Sinuses: Mucosal thickening is seen in the anterior ethmoid air cells. Visualized sinuses and mastoids are otherwise clear. IMPRESSION: No acute intracranial pathology. Approved by: Frantz Carpenter M.D. on 02/16/2024 at 19:13
== END 2024-02-16 19:27 | disposition home or self-care (01) ==
PROVIDERS: Emergency Provider Emergency Medicine; PCP Naturopath
DX: R44.9 Unspecified symptoms and signs involving general sensations and perceptions (principal); K58.9 Irritable bowel syndrome, unspecified; Z87.820 Personal history of traumatic brain injury; Z86.69 Personal history of other diseases of the nervous system and sense organs
CPT/HCPCS: 70450; 99281; 99284